=== PATIENT | female | born 1965 | race Caucasian/White ===

== ENCOUNTER 2023-09-08 12:11 | Outpatient (CLI) | payer OTHER, SELFPAY ==
--- NOTE | ~2023-09-08 | XR_ITS ---
EXAM: XR knee LT 3V DATE: 09/08/2023 12:34 HISTORY: Left knee pain . COMPARISON: None available. FINDINGS: Decreased mineralization. No fracture or dislocation. No lytic or blastic lesion. Moderate medial joint space narrowing. Moderate tricompartmental osteophytosis. 7 mm ossified body projecting over the posterior knee may represent a fabella or loose body. No erosion or periosteal change. Soft tissues within normal limits. IMPRESSION: Osteopenia. Moderate tricompartmental left knee osteoarthritis. Fabella versus loose body . Reviewed, dictated and finalized at location K. IMPRESSION: Osteopenia. Moderate tricompartmental left knee osteoarthritis. [place] claudia versus loose body.
== END 2023-09-08 12:12 ==
DX: M17.12 Unilateral primary osteoarthritis, left knee (principal); M85.88 Other specified disorders of bone density and structure, other site
CPT/HCPCS: 73562